=== PATIENT | male | born 1990 | race African-American/Black ===

== ENCOUNTER 2019-02-26 18:17 | Emergency (ER) | payer OTHER, MEDICARE, MEDICAID ==
[~2019-02-26] VITALS: Ht 180.3 cm; Wt 104.5 kg
[2019-02-26] MEDS ORDERED: CVS IBUPROFEN200 M3 PO (18:35)
[2019-02-26 18:47] LABS: HEMATOCRIT 40.3 % (39.0-50.0); HEMOGLOBIN 13.2 g/dl (14.0-18.0); MEAN CELL VOLUME 78.1 fL CALC (80.0-100.0); MEAN CORPUSCULAR HGB 25.6 pG CALC (26.0-32.0); MEAN CORPUSCULAR HGB CONC 32.8 g/L CALC (32.0-36.0); NEUT# 2.14 thou/uL (1.82-7.42); RED BLOOD COUNT 5.16 mill/uL (4.70-6.10); RED CELL DISTRI WIDTH 13.9 % (11.5-15.5)
[2019-02-26 19:00] LABS: ANION GAP 13 (6-22 (CALC)); BUN 11 mg/dL (9-20); BUN/CREATININE RATIO 11 (12-20 (CALC)); CARBON DIOXIDE 31 mmol/l (22-30); CHLORIDE 100 mmol/l (95-108); GFR > 60 ML/MIN (>=60 (CALC)); GFR FOR AFR.AMER. > 60 ML/MIN (>=60 (CALC)); POTASSIUM 3.9 mmol/l (3.5-5.1); SODIUM 141 mmol/l (137-146)
[2019-02-26 21:25] VITALS: BP 140/88
== END 2019-02-26 21:27 | DRG 313 ==
LOC: ED 18:17
PROVIDERS: Family Medicine
DX: R07.89 Other chest pain (principal); I10 Essential (primary) hypertension; Z79.899 Other long term (current) drug therapy
CPT/HCPCS: Q9967

== ENCOUNTER 2019-04-09 | Emergency (ER) | payer OTHER, MEDICARE, MEDICAID ==
[~2019-04-09] MED LIST: CVS IBUPROFEN200 M3 PO
[2019-04-09] MEDS ORDERED: KEFLEX500 M1 PO (15:50)
== END 2019-04-09 16:00 | DRG 607 ==
PROC: 3E0T3BZ Introduction of Anesthetic Agent into Peripheral Nerves and Plexi, Percutaneous Approach (ICD-10-PCS; principal; 2019-04-09)
DX: L60.0 Ingrowing nail (principal); B95.62 Methicillin resistant Staphylococcus aureus infection as the cause of diseases classified elsewhere; I10 Essential (primary) hypertension

== ENCOUNTER 2022-04-16 01:03 | Emergency (ER) | payer MEDICARE, MEDICAID ==
[~2022-04-16] VITALS: Ht 180.3 cm; Wt 113.6 kg
[2022-04-16] VITALS (9 sets, daily range): BP systolic 154–187; BP diastolic 107–128
[~2022-04-16 01:03] MED LIST changes: +KEFLEX500 M1 PO
[2022-04-16 01:50] LABS: BASO% 0.2 % (0-3); EOS% 0.8 % (0-8); HEMATOCRIT 42.6 % (39.0-50.0); HEMOGLOBIN 13.7 g/dl (14.0-18.0); LYMPH% 44.8 % (15-41); MEAN CELL VOLUME 78.2 fL CALC (80.0-100.0); MEAN CORPUSCULAR HGB 25.1 pG CALC (26.0-32.0); MEAN CORPUSCULAR HGB CONC 32.2 g/dL CAL (32.0-36.0); MONO% 11.2 % (2-13); NEUT# 2.03 thou/uL (1.82-7.42); RED BLOOD COUNT 5.45 mill/uL (4.70-6.10); RED CELL DISTRI WIDTH 14.2 % (11.5-15.5)
[2022-04-16 02:09] LABS: ALBUMIN 4.7 g/dL (3.2-5.0); ALKALINE PHOSPHATASE 90 u/l (38-126); ANION GAP 12 (6-22 (CALC)); BUN 12 mg/dL (9-20); BUN/CREATININE RATIO 11 (12-20 (CALC)); CARBON DIOXIDE 28 mmol/l (22-30); CHLORIDE 104 mmol/l (95-108); CREATININE 1.2 mg/dL (0.7-1.3); GFR FOR AFR.AMER. > 60 ML/MIN (>=60 (CALC)); GFR OTHER RACES > 60 ML/MIN (>=60 (CALC)); LIPASE 50 u/l (23-300); MAGNESIUM 2.1 mg/dL (1.6-2.3); POTASSIUM 4.3 mmol/l (3.5-5.1); SGOT/AST 42 u/l (17-59); SODIUM 139 mmol/l (137-146); TOTAL PROTEIN 8.3 g/dL (6.3-8.2)
[2022-04-16 02:11] LABS: D-DIMER 0.31 mg/L (0.19-0.60)
[2022-04-16 02:12] LABS: BILIRUBIN, TOTAL 1.1 mg/dL (0.0-1.4)
[2022-04-16 02:14] LABS: ACT PARTIAL THROMBO TIME 29.2 SECONDS (20.0-32.5); PROTHROMBIN TIME 10.2 SECONDS (9.0-12.5)
[2022-04-16 02:42] LABS: URINE BILIRUBIN - DIPSTICK NEGATIVE (NEGATIVE); URINE BLOOD DIPSTICK NEGATIVE (NEGATIVE); URINE COLOR YELLOW; URINE GLUCOSE - DIPSTICK NEGATIVE (NEGATIVE); URINE KETONE NEGATIVE (NEGATIVE); URINE LEUK ESTERASE NEGATIVE (NEGATIVE); URINE NITRITE - DIPSTICK NEGATIVE (Negative); URINE PROTEIN - DIPSTICK NEGATIVE (NEG-TRACE); URINE SPECIFIC GRAVITY >=1.030; URINE UROBILINOGEN - DIPSTICK 0.2 E.U./dL (0.2)
[2022-04-16] MEDS ORDERED: VOLTAREN75 MG PO (02:50)
== END 2022-04-16 03:43 | disposition home or self-care (01) ==
LOC: ED 01:03
PROVIDERS: Family Medicine
DX: R07.89 Other chest pain (principal); I10 Essential (primary) hypertension